=== PATIENT | female | born 1935 | race Asian ===

== ENCOUNTER → 2017-02-14 | Outpatient (CLI) | payer SELFPAY ==
--- NOTE | 2017-02-15 07:51 | MM ---
Reason for exam: screening (asymptomatic). Last mammogram was performed 1 year ago. History: Patient is postmenopausal. Family history of premenopausal breast cancer in sister at age 45. Physical Findings: A clinical breast exam by your physician is recommended on an annual basis and results should be correlated with mammographic findings. MG 3D Screening Mammo W/Cad Bilateral CC and MLO view(s) were taken. Prior study comparison: February 09, 2016, bilateral MG 3d screening mammo w/cad. December 11, 2014, bilateral MG screening mammo w CAD. There are scattered fibroglandular densities. There is no discrete abnormality. No significant changes when compared with prior studies. ASSESSMENT: Negative, BI-RAD 1 RECOMMENDATION: Routine screening mammogram of both breasts in 1 year.
== END | disposition home or self-care (01) ==
LOC: RADMAMWWP 09:31
PROVIDERS: ATTEND Surgery
DX: Z12.31 Encounter for screening mammogram for malignant neoplasm of breast (principal)
CPT/HCPCS: 77063; G0202

== ENCOUNTER → 2018-01-18 | Outpatient (CLI) | payer BC ==
[2018-01-18 12:24] LABS: Magnesium 2.2 mg/dL (1.6-2.3)
--- NOTE | 2018-01-18 12:31 | XR ---
EXAMINATION TYPE: XR chest 2V DATE OF EXAM: 01/18/2018 COMPARISON: None TECHNIQUE: PA and lateral views submitted. HISTORY: Cough FINDINGS: The lungs are clear and there is no pneumothorax, pleural effusion, or focal pneumonia. Calcificati on the right upper lobe likely related to granuloma. Atherosclerotic change aorta. Diffuse osteopenia . Hypertrophic and degenerative change the spine. No overt failure. IMPRESSION: 1. No acute process. Right upper lobe calcified granuloma.
--- NOTE | 2018-01-18 12:32 | XR ---
EXAM TYPE: LUMBAR SPINE X RAY SERIES COMPARISON: NONE HISTORY: Pain TECHNIQUE: 3 views are submitted. FINDINGS: Alignment is anatomic. The pedicles are intact. The transverse processes are intact. There is no s pondylolysis or spondylolisthesis. Diffuse osteopenia. Grade 1 anterolisthesis of L3 on L4 and L4 on L5 with multilevel severe degenerative disc disease and facet arthropathy. Foraminal encroachment is multiple level suspected. Curvature the spine noted. IMPRESSION: 1. Multilevel severe degenerative disc disease with grade 1 anterolisthesis L3 on L4 and L4-L5. Likel y result in foraminal encroachment. Recommend MRI.
--- NOTE | 2018-01-18 12:34 | XR ---
EXAMINATION TYPE: XR cervical spine comp DATE OF EXAM: 01/18/2018 COMPARISON: NONE HISTORY: Pain TECHNIQUE: Four views are submitted. FINDINGS: The odontoid is intact. There are no compression deformities. The prevertebral soft tissue structur es are within normal limits. Multilevel facet arthropathy. Severe degenerative disc disease levels C 3-C7. Slight anterolisthesis C7 on T1. Foraminal encroachment suspected at C3-C7 levels. There is a r etrolisthesis of C3 relative to C4. IMPRESSION: 1. Severe multilevel degenerative disc disease and facet arthropathy with posterior spondylosis. Retr olisthesis of C3 on 4 and anterolisthesis C7 on T1. Multilevel foraminal encroachment identified lilliam mmend MRI.
[2018-01-18 12:43] LABS: T4, Free (Free Thyroxine) 1.06 ng/dL (0.78-2.19)
[2018-01-18 16:30] LABS: Protein, Total 6.6 g/dL (6.2-8.2)
[2018-01-18 17:05] LABS: Folate, Serum >24.0 ng/mL; Rheumatoid Factor 5 IU/mL (0-15)
[2018-01-18 18:02] LABS: Hepatitis A Antibody IgM Non-Reactive (Non-Reactive); Hepatitis B Core IgM Non-Reactive (Non-Reactive)
== END | disposition home or self-care (01) ==
LOC: LABWHC1 11:35
PROVIDERS: ATTEND Internal Medicine
DX: M50.30 Other cervical disc degeneration, unspecified cervical region (principal); M43.13 Spondylolisthesis, cervicothoracic region; M46.82 Other specified inflammatory spondylopathies, cervical region; M47.812 Spondylosis without myelopathy or radiculopathy, cervical region; M51.36 Other intervertebral disc degeneration, lumbar region; M46.86 Other specified inflammatory spondylopathies, lumbar region; M43.16 Spondylolisthesis, lumbar region; J84.10 Pulmonary fibrosis, unspecified; G62.9 Polyneuropathy, unspecified
CPT/HCPCS: 36415; 71046; 72050; 72100; 80074; 82595; 82607; 82746; 83615; 83735; 83883; 84165; 84439; 84443; 85652; 86038; 86431

== ENCOUNTER → 2018-03-08 | Outpatient (CLI) | payer BC ==
--- NOTE | 2018-03-09 11:38 | MM ---
Reason for exam: screening (asymptomatic). Last mammogram was performed 1 year and 1 month ago. History: Patient is postmenopausal. Family history of premenopausal breast cancer in sister at age 45. Physical Findings: A clinical breast exam by your physician is recommended on an annual basis and results should be correlated with mammographic findings. MG 3D Screening Mammo W/Cad Bilateral CC and MLO view(s) were taken. Prior study comparison: February 14, 2017, bilateral MG 3d screening mammo w/cad. February 09, 2016, bilateral MG 3d screening mammo w/cad. There are scattered fibroglandular densities. There are benign appearing vascular calcifications bilaterally. There is no discrete abnormality. ASSESSMENT: Benign, BI-RAD 2 RECOMMENDATION: Routine screening mammogram of both breasts in 1 year.
== END | disposition home or self-care (01) ==
LOC: RADMAMWWP 09:10
PROVIDERS: ATTEND Internal Medicine Interventional Cardiology
DX: Z12.31 Encounter for screening mammogram for malignant neoplasm of breast (principal)
CPT/HCPCS: 77063; 77067

== ENCOUNTER → 2018-12-20 | Outpatient (CLI) | payer BC ==
[2018-12-20 16:31] LABS: Anion Gap 7.6 mmol/L (4.00-12.00); Carbon Dioxide 26.4 mmol/L (21.6-31.8); Potassium 4.9 mmol/L (3.5-5.5)
== END | disposition home or self-care (01) ==
LOC: LABWHC1 10:06
PROVIDERS: ATTEND Internal Medicine Interventional Cardiology
DX: I48.0 Paroxysmal atrial fibrillation (principal)
CPT/HCPCS: 36415; 80051

== ENCOUNTER 2019-01-09 17:56 | Emergency (ER) | payer BC ==
[2019-01-09 18:13] VITALS: RESP 18; TEMP 97.8
[2019-01-09] MEDS ORDERED: MORPHINE SULFATE 2 MG/ML SYRINGE IVP STA (18:29)
[2019-01-09] MEDS ORDERED: ONDANSETRON 4 MG/2 ML VIAL IVP STA (18:29)
--- NOTE | 2019-01-09 18:39 | CT ---
EXAMINATION TYPE: CT brain leonard oates DATE OF EXAM: 01/09/2019 COMPARISON: None HISTORY: Nose and right supraorbital pain after fall. CT DLP: 1061.5 mGycm Automated exposure control for dose reduction was used. TECHNIQUE: CT scan of the head and cervical spine are performed without contrast. FINDINGS: There is some cerebral cortical atrophy. There is no mass effect nor midline shift. There is no sign of intracranial hemorrhage. There is large right frontal scalp hematoma that measures 1.3 cm in thickness. There is no evidence of a skull fracture. There is mild straightening of the upper cervical spine. There is degenerative disc space narrowing f rom C3 to C7 with spurring of the endplates. There is a minimal retrolisthesis at C3-4. Skull base is intact. Facet joints are intact. There is no evidence of cervical spine fracture. IMPRESSION: Large right frontal scalp hematoma. No acute intracranial abnormality. Spondylotic changes in the cervical spine. No fracture seen.
--- NOTE | 2019-01-09 18:40 | CT ---
EXAMINATION TYPE: CT facial bones wo con DATE OF EXAM: 01/09/2019 COMPARISON: None HISTORY: Nose and right supraorbital pain after fall. CT DLP: mGycm Automated exposure control for dose reduction was used. TECHNIQUE: CT scan of the sinuses is performed without contrast, axial images are obtained, coronal r eformatted images are also reviewed. FINDINGS: The orbital margins are intact. There is no evidence of a blowout fracture. There is fairly normal aeration of the paranasal sinuses. Mandibular ring is intact. Temporomandibular joints appear intact. Zygomatic arches appear normal. There is fracture of the nasal bone which is deviated slight ly to the left side. There is large right frontal scalp hematoma that measures 1.5 cm in thickness. Frontal bone appears i ntact. There is no evidence of orbital mass. The globes are symmetric. IMPRESSION: Right frontal scalp hematoma. Nasal bone fracture.
[2019-01-09] MEDS ORDERED: CEPHALEXIN 500 MG CAP PO STA (18:50)
[2019-01-09] MEDS ORDERED: CEPHALEXIN 500MG STARTER PACK 4 CAP BTL PO STA (18:50)
--- NOTE | 2019-01-09 18:57 | ED ---
General Adult HPI - General Chief complaint: Fall Stated complaint: Fall Time Seen by Provider: 01/09/19 17:56 Source: family, RN notes reviewed Mode of arrival: wheelchair Limitations: no limitations - History of Present Illness Initial comments: This is an 83-year-old female who has been getting physical therapy to get stronger and she just is a one hour session prior to her fall. Patient states she's in the bathroom and was weak and when she turned around she fell straight forward and hit her head on the ground. There was no loss of consciousness patient denies any neck pain. Patient does have a large hematoma on the right side of her forehead. Patient also complains ofpain. Patient denies any numbness or weakness. Patient denies any chest or back pain. Patient denies any upper extremity pain patient denies any lower stomach pain. Patient's only complaint is a hematoma and the pain around her nose. Family states she's just been worked up for weakness and they did not want any workup for the patient at all other than to make sure she wasn't bleeding that she is on Xarelto. - Related Data Home Medications Medication Instructions Recorded Confirmed Rivaroxaban [Xarelto] 15 mg PO DIRECTED 03/26/17 03/26/17 Flecainide [Tambocor] 50 mg PO BID 01/09/19 01/09/19 Multivitamins, Thera [Multivitamin 1 tab PO DAILY 01/09/19 01/09/19 (formulary)] Sertraline [Zoloft] 50 mg PO DAILY 01/09/19 01/09/19 Previous Rx's Medication Instructions Recorded Cephalexin [Keflex] 500 mg PO Q6HR #20 cap 01/09/19 Allergies Allergy/AdvReac Type Severity Reaction Status Date / Time No Known Allergies Allergy Verified 01/09/19 18:09 Review of Systems ROS Statement: Those systems with pertinent positive or pertinent negative responses have been documented in the HPI. ROS Other: All systems not noted in ROS Statement are negative. Past Medical History Past Medical History: Atrial Fibrillation History of Any Multi-Drug Resistant Organisms: None Reported Past Surgical History: Orthopedic Surgery Past Psychological History: No Psychological Hx Reported Smoking Status: Never smoker Past Alcohol Use History: None Reported Past Drug Use History: None Reported General Exam - General Exam Comments Initial Comments: GENERAL: Patient is well-developed and well-nourished. Patient is nontoxic and well- hydrated and is in no acute distress. ENT: Neck is soft and supple. Patient has a large hematoma on the right side of her forehead. Patient's nose is very tender to palpate the proximal aspect as well as having some ecchymosis to that area. Patient has a very slow trickle of bleeding. Patient has no septal hematoma. Neck has full range of motion without eliciting any pain. EYES: The sclera were anicteric and conjunctiva were pink and moist. Extraocular movements were intact and pupils were equal round and reactive to light. Eyelids were unremarkable. ABDOMEN: Soft and nontender with normal bowel sounds. SKIN: Large hematoma right side of her forehead as well as ecchymosis around the proximal nose NEUROLOGIC: Patient is alert and oriented x3. Cranial nerves II through XII are grossly intact. Motor and sensory are also intact. Normal speech, volume and content. Symmetrical smile. MUSCULOSKELETAL: Normal extremities with adequate strength and full range of motion. PSYCHIATRIC: Normal psychiatric evaluation. Limitations: no limitations Course Vital Signs 01/09/19 18:09 Temperature 97.8 F Pulse Rate 78 Respiratory 18 Rate Blood Pressure 206/109 O2 Sat by Pulse 97 Oximetry Medical Decision Making - Medical Decision Making CT of the head shows no acute abnormalities. C-spine shows no acute normalities. CT of the facial bones shows a slightly displaced nasal bone fracture Disposition Clinical Impression: Head injury, Hematoma, Nasal bone fracture Disposition: HOME SELF-CARE Condition: Good Instructions (If sedation given, give patient instructions): Fall Prevention for Older Adults (ED), Nasal Fracture (ED), How to Use and Care for Your PEG Tube (ED), Head Injury (ED) Additional Instructions: Patient should follow-up with ENT in 3-4 days. Patient to return to emergency department if there is any headache or altered mental status or any new sy mptoms. Patient's take Keflex as prescribed. Prescriptions: Cephalexin [Keflex] 500 mg PO Q6HR #20 cap Is patient prescribed a controlled substance at d/c from ED?: No Referrals: Jaylin Lopez MD [Primary Care Provider] - 1-2 days Time of Disposition: 18:55
[2019-01-09 19:07] VITALS: BP 171/93
[2019-01-09 19:17] VITALS: PULSE 74
== END 2019-01-09 19:15 | disposition home or self-care (01) ==
LOC: EC 17:56
DX: S02.2XXA Fracture of nasal bones, initial encounter for closed fracture (principal); S00.83XA Contusion of other part of head, initial encounter; I48.91 Unspecified atrial fibrillation; Z79.01 Long term (current) use of anticoagulants; Z53.20 Procedure and treatment not carried out because of patient's decision for unspecified reasons; Z98.890 Other specified postprocedural states; Z99.89 Dependence on other enabling machines and devices; W18.30XA Fall on same level, unspecified, initial encounter; Y92.002 Bathroom of unspecified non-institutional (private) residence as the place of occurrence of the external cause
CPT/HCPCS: 70450; 70486; 72125; 99283

== ENCOUNTER → 2019-03-12 | Outpatient (CLI) | payer BC ==
--- NOTE | 2019-03-12 08:55 | MM ---
Reason for exam: screening (asymptomatic). Last mammogram was performed 1 year ago. History: Patient is postmenopausal. Family history of premenopausal breast cancer in sister at age 45. Physical Findings: A clinical breast exam by your physician is recommended on an annual basis and results should be correlated with mammographic findings. MG 3D Screening Mammo W/Cad Bilateral CC and MLO view(s) were taken. Prior study comparison: March 08, 2018, bilateral MG 3d screening mammo w/cad. February 14, 2017, bilateral MG 3d screening mammo w/cad. There are scattered fibroglandular densities. Benign appearing bilateral calcifications. No suspicious abnormality. No significant changes when compared with prior studies. ASSESSMENT: Benign, BI-RAD 2 RECOMMENDATION: Routine screening mammogram of both breasts in 1 year.
== END ==
LOC: RADMAMWWP 07:55
PROVIDERS: ATTEND Internal Medicine Interventional Cardiology
DX: Z12.31 Encounter for screening mammogram for malignant neoplasm of breast (principal)
CPT/HCPCS: 77063; 77067

== ENCOUNTER → 2020-12-02 | Outpatient (CLI) | payer BC ==
--- NOTE | 2020-12-02 13:38 | CT ---
EXAMINATION TYPE: CT brain wo con DATE OF EXAM: 12/02/2020 COMPARISON: CT 01/09/2019 HISTORY: Communicating hydrocephalus CT DLP: 1043.1 mGycm Automated exposure control for dose reduction was used. FINDINGS: There are cerebral vascular calcifications present. Cortical atrophy is present. Periventricular whit e matter shows patchy low attenuation. Ventriculoperitoneal shunt terminates within the third ventric le via a right frontal craniotomy has been placed in the interval. There is no hemorrhage or signific ant change in the prominent appearance of the ventricles. 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 CORTICAL ATROPHY, STABLE APPEAR ANCE OF THE VENTRICLES, PERIVENTRICULAR WHITE MATTER LOW-ATTENUATION MAY REPRESENT DEMYELINATION ARLENE LAR TO PRIOR EXAM.
== END | disposition home or self-care (01) ==
LOC: RADCTMAIN 11:09
PROVIDERS: ATTEND Neurological Surgery
DX: G31.9 Degenerative disease of nervous system, unspecified (principal); Z98.890 Other specified postprocedural states
CPT/HCPCS: 70450